=== PATIENT | male | born 1950 | race Caucasian/White ===

== ENCOUNTER 2021-05-13 07:15 | Emergency (ER) | payer MEDICARE ==
[~2021-05-13] VITALS: Ht 172.7 cm; Wt 107.0 kg
--- NOTE | 2021-05-13 08:00 | ED.ADGEN ---
Past Medical History Additional Past Medical Histor: VERTIGO Past Surgical History: Splenectomy, Other Additional Past Surgical Histo: NOSE,KNEE Smoking Status: Current Some Day Smoker Additional Information: SMOKES CIGARS Alcohol Use: Occasionally General Adult EDM: Chief Complaint: SHORTNESS OF BREATH HPI: HPI: Patient is a 70 year old male coming in for numerous complaints related to cold symptoms. Patient states he feels bad and short of breath and also is complain ing of a sore throat. States that he has treated himself with gargling with salt water and taking some leftover amoxicillin that he had from a dental procedure. Is not vaccinated against COVID-19, has had numerous sick contacts. States he did get his influenza vaccine. Review of Systems: Review of Systems: All other systems within normal limits except for as noted in the HPI Allergies: Allergies: Allergies Coded Allergies Type Severity Reaction Last Updated Verified niacin Adverse Reaction Intermediate FLUSH 05/13/21 Yes Physical Exam: PE: Constitutional: Well developed, well nourished, no acute distress, non-toxic appearance. [] HENT: Normocephalic, atraumatic, bilateral external ears normal, nose normal. [] Eyes: PERRLA, conjunctiva normal, no discharge. [] Neck: No rigidity, supple, no stridor. [] Cardiovascular: Regular rate and rhythm, brisk cap refill [] Lungs & Thorax: Non labored symmetric respirations, no tachypnea or respiratory distress [] Abdomen: Soft, nondistended. Skin: Warm, dry, no erythema, no rash. [] Back: Unremarkable Extremities: No deformities, range of motion grossly intact, no lower extremity edema [] Neurologic: Alert and oriented X 3, no focal deficits noted. [] Psychologic: Affect normal, judgement normal, mood normal. [] Current Patient Data: Labs: Laboratory Tests Test 05/13/21 07:30 White Blood Count 12.1 x10^3/uL (4.0-11.0) H Red Blood Count 4.45 x10^6/uL (4.30-5.70) Hemoglobin 14.0 g/dL (13.0-17.5) Hematocrit 41.8 % (39.0-53.0) Mean Corpuscular Volume 94 fL (79-100) Mean Corpuscular Hemoglobin 31 pg (25-35) Mean Corpuscular Hemoglobin Concent 33 g/dL (31-37) Red Cell Distribution Width 13.6 % (11.5-14.5) Platelet Count 354 x10^3/uL (140-400) Neutrophils (%) (Auto) 69 % (31-73) Lymphocytes (%) (Auto) 19 % (24-48) L Monocytes (%) (Auto) 11 % (0-9) H Eosinophils (%) (Auto) 1 % (0-3) Basophils (%) (Auto) 1 % (0-3) Neutrophils # (Auto) 8.3 x10^3/uL (1.8-7.7) H Lymphocytes # (Auto) 2.3 x10^3/uL (1.0-4.8) Monocytes # (Auto) 1.3 x10^3/uL (0.0-1.1) H Eosinophils # (Auto) 0.1 x10^3/uL (0.0-0.7) Basophils # (Auto) 0.1 x10^3/uL (0.0-0.2) Sodium Level 139 mmol/L (136-145) Potassium Level 4.3 mmol/L (3.5-5.1) Chloride Level 100 mmol/L (98-107) Carbon Dioxide Level 25 mmol/L (21-32) Anion Gap 14 (6-14) Blood Urea Nitrogen 19 mg/dL (8-26) Creatinine 1.2 mg/dL (0.7-1.3) Estimated GFR (Cockcroft-Gault) 60.2 BUN/Creatinine Ratio 16 (6-20) Glucose Level 156 mg/dL (70-99) H Calcium Level 8.9 mg/dL (8.5-10.1) Total Bilirubin 0.4 mg/dL (0.2-1.0) Aspartate Amino Transferase (AST) 51 U/L (15-37) H Alanine Aminotransferase (ALT) 88 U/L (16-63) H Alkaline Phosphatase 81 U/L (46-116) Troponin I High Sensitivity 9 ng/L (4-75) Total Protein 7.7 g/dL (6.4-8.2) Albumin 3.9 g/dL (3.4-5.0) Albumin/Globulin Ratio 1.0 (1.0-1.7) Influenza Type A Antigen Negative (NEGATIVE) Influenza Type B Antigen Negative (NEGATIVE) SARS-CoV-2 Antigen (Rapid) Positive (NEGATIVE) *A Laboratory Tests 05/13/21 07:30 Laboratory Tests 05/13/21 07:30 Vital Signs: Vital Signs Date Time Temp Pulse Resp B/P (MAP) Pulse Ox O2 Delivery O2 Flow Rate FiO2 05/13/21 07:19 98.4 86 20 162/94 (116) 97 Room Air 98.4 EKG: EKG: Sinus rhythm, heart rate 88 bpm, left axis deviation, no ST elevation or depression, normal intervals. No ectopy [] Heart Score: C/O Chest Pain: Yes HEART Score for Chest Pain: HEART Score for Chest Pain Response (Comments) Value History Slighlty/Non-Suspicious 0 Total 0 Risk Factors: Risk Factors: DM, Current or recent (<one month) smoker, HTN, HLP, family history of CAD, obesity. Risk Scores: Score 0 - 3: 2.5% MACE over next 6 weeks - Discharge Home Score 4 - 6: 20.3% MACE over next 6 weeks - Admit for Clinical Observation Score 7 - 10: 72.7% MACE over next 6 weeks - Early Invasive Strategies Radiology/Procedures: Radiology/Procedures: [facility] [address] [place] [address] IMAGING REPORT Signed PATIENT: ASHTYN HARRIS ACCOUNT: [id number] : 1950 LOCATION: ER AGE: 70 SEX: M EXAM STATUS: REG ER ORD. PHYSICIAN: MACARIO SERNA MD REASON: covid PROCEDURE: CHEST AP ONLY INDICATION: Reason: covid / Spl. Instructions: / History: COMPARISON: None. FINDINGS: Single view of chest obtained. Cardiomediastinal silhouette is enlarged. Left lung base is obscured by overlying cardiac silhouette but no definite consolidation elsewhere in the lungs. IMPRESSION: * No focal airspace consolidation or edema. Electronically signed by: Mohsen Hall MD (05/13/2021 8:42 AM) [id number] DICTATED and SIGNED BY: MOHSEN HALL MD DATE: 05/13/21 [id number] [] Course & Med Decision Making: Course & Med Decision Making Pertinent Labs and Imaging studies reviewed. (See chart for details) [] Dragon Disclaimer: Dragon Disclaimer: This electronic medical record was generated, in whole or in part, using a voice recognition dictation system. Departure Departure Impression: Primary Impression: COVID Disposition: 01 HOME / SELF CARE / HOMELESS Condition: STABLE Referrals: LISSETT GALLAGHER DO (PCP) Patient Instructions: Viral Pneumonia, Infant MACARIO SERNA MD May 13, 2021 08:00
[2021-05-13 08:03] LABS: BASO # 0.1 x10^3/uL (0.0-0.2); BASO % 1 % (0-3); EOS # 0.1 x10^3/uL (0.0-0.7); EOS % 1 % (0-3); HEMATOCRIT 41.8 % (39.0-53.0); LYMPH # 2.3 x10^3/uL (1.0-4.8); LYMPH % 19 % (24-48); MEAN CORPUSCULAR HEMOGLOBIN 31 pg (25-35); MEAN CORPUSCULAR HGB CONC 33 g/dL (31-37); MEAN CORPUSCULAR VOLUME 94 fL (79-100); MONO # 1.3 x10^3/uL (0.0-1.1); MONO % 11 % (0-9); NEUT # 8.3 x10^3/uL (1.8-7.7); NEUT % 69 % (31-73); PLATELET COUNT 354 x10^3/uL (140-400); RED BLOOD COUNT 4.45 x10^6/uL (4.30-5.70); RED CELL DISTRIBUTION WIDTH 13.6 % (11.5-14.5); WHITE BLOOD COUNT 12.1 x10^3/uL (4.0-11.0)
[2021-05-13 08:07] LABS: CALCIUM 8.9 mg/dL (8.5-10.1); CREATININE 1.2 mg/dL (0.7-1.3); GFR 60.2; POTASSIUM 4.3 mmol/L (3.5-5.1)
[2021-05-13 08:13] LABS: ALBUMIN 3.9 g/dL (3.4-5.0); TOTAL BILIRUBIN 0.4 mg/dL (0.2-1.0); TOTAL PROTEIN 7.7 g/dL (6.4-8.2)
[2021-05-13 08:42] LABS: INFLUENZA A PATIENT NEGATIVE (NEGATIVE); INFLUENZA B PATIENT NEGATIVE (NEGATIVE)
--- NOTE | 2021-05-13 08:44 | RAD ---
INDICATION: Reason: covid / Spl. Instructions: / History: COMPARISON: None. FINDINGS: Single view of chest obtained. Cardiomediastinal silhouette is enlarged. Left lung base is obscured by overlying cardiac silhouette but no definite consolidation elsewhere in the lungs. IMPRESSION: * No focal airspace consolidation or edema. Electronically signed by: Adolph Simental MD (05/13/2021 8:42 AM) [id number]
--- NOTE | 2021-05-13 08:50 | EKG ---
[facility] [address] [place] [address] Test Date: 2021-05-13 Test Time: 07:22:55 Pat Name: ASHTYN HARRIS Department: Room: Gender: M [employer] Engineer: : 1950 Requested By: MACARIO SERNA Order Number: [id number] Reading MD: Bello Pop MD Measurements Intervals [place] Rate: 88 P: 29 [place]: 174 QRS: -84 QRSD: 104 T: -2 QT: 376 QTc: 459 Interpretive Statements SINUS RHYTHM LAD POOR R WAVE PROGRESSION Electronically Signed On 05-13-2021 9:41:29 MUSIC LEADER by Bello Pop MD
[2021-05-13 09:29] VITALS: BP 136/72
== END 2021-05-13 10:02 | disposition home or self-care (01) ==
LOC: ER 07:15
DX: U07.1 COVID-19 (principal)
CPT/HCPCS: 36415; 71045; 80053; 84484; 85025; 87426; 87804; 93005; 99285-25